=== PATIENT | male | born 1985 | race Two or more races ===

== ENCOUNTER 2019-02-24 09:47 | Emergency (ER) | payer BC ==
[~2019-02-24] VITALS: Ht 175.3 cm; Wt 103.4 kg
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
[2019-02-24] MEDS ORDERED: FLUORESCEIN SODIUM OPHTH 1 EA STRIP ONE (10:05)
--- NOTE | 2019-02-24 10:20 | NUR ---
Dr. Simmons at bedside and spoke to the patient for Opthalmologist consult.
[2019-02-24 10:24] VITALS: BP 128/88
--- NOTE | 2019-02-24 10:26 | NUR ---
Patient discharged to home in stable condition. Written and verbal after care instructions given. Patient verbalizes understanding of instruction.
[2019-02-24] MEDS ORDERED: TETRACAINE HCL 0.5% OPHTALMIC 15 ML BOTTLE OP ONE (10:30)
[2019-02-24] MEDS ORDERED: FLUORESCEIN SODIUM OPHTH 1 EA STRIP OP ONE (10:30)
== END 2019-02-24 10:25 | disposition home or self-care (01) ==
LOC: ER 09:57
DX: S05.8X2A Other injuries of left eye and orbit, initial encounter (principal); W22.8XXA Striking against or struck by other objects, initial encounter; Y93.89 Activity, other specified; Y92.89 Other specified places as the place of occurrence of the external cause; Y99.8 Other external cause status